=== PATIENT | male | born 1955 | race Hispanic/Latino ===

== ENCOUNTER → 2020-09-16 | Outpatient (CLI) | payer MEDICARE ==
[~2020-09-16] MED LIST: ENAL1TAB11 PO; METFORMIN
== END | disposition home or self-care (01) ==
LOC: RAH 14:37
PROVIDERS: ATTEND Family Medicine
DX: N28.1 Cyst of kidney, acquired (principal); N28.9 Disorder of kidney and ureter, unspecified
CPT/HCPCS: 76770